=== PATIENT | female | born 1995 | race Caucasian/White ===

== ENCOUNTER 2025-03-11 05:55 | Day surgery (SDC) | payer OTHER ==
[2025-03-11 06:18] LABS: HCG URINE TEST NEGATIVE (NEGATIVE)
[2025-03-11 06:24] VITALS: RESP 18
[2025-03-11] MEDS: Lactated Ringers 1,000 ML IV SCH (06:30)
[2025-03-11] MEDS ORDERED: propofoL IV ONE ×2 (07:56→08:10)
[2025-03-11] MEDS ORDERED: Xylocaine-Mpf 2% 5 Ml Vial ONE (07:56)
[2025-03-11 08:46] VITALS: O2SAT 100
[2025-03-11 09:01] VITALS: BP 116/70; PULSE 62; TEMP 97.7
--- NOTE | 2025-03-12 10:02 | OP ---
SURGERY DATE/TIME: 03/11/2025 [id number] PREOPERATIVE DIAGNOSIS: Rectal bleeding. POSTOPERATIVE DIAGNOSIS: Small polyp in the descending colon. PROCEDURE: Colonoscopy with cold forceps biopsy. SURGEON: Clemente Goetz MD ANESTHESIA: Medication given by the anesthesia department. INDICATIONS: The patient is a 29-year-old white female who presents with complaints of 6 months of rectal bleeding, bright red in nature. The patient reports that she has had no abdominal pain, no mucus stools. The patient does report, however, that both her brother and mother have had colon polyps removed. The patient was felt to need to have endoscopic evaluation. The patient was apprised of the risks of the procedure including risk of perforation, phlebitis, untoward reaction to medication, bleeding, and missed lesions. The patient verbalized her understanding and desired to have the procedure performed. DESCRIPTION OF PROCEDURE AND FINDINGS: Patient was given medication by the anesthesia department. She had continuous pulse oximetry, ECG monitoring, and intermittent blood pressure monitoring during the examination. She was placed in the left lateral decubitus position. Digital rectal examination was performed and revealed normal anal sphincter tone and no masses. The flexible Olympus videocolonoscope was used to intubate the rectum. A view of the colon was developed sequentially to the cecum, including a short distance into the terminal ileum. Upon insertion and withdrawal was noted a small polyp in the descending colon, which was very small in nature and size. Cold forceps biopsy, 2 passes, were used to destroy lesion. With no other mucosal lesions being encountered, the scope was removed. The patient tolerated the procedure well and was sent back to outpatient recovery in good condition. The prep was noted to be fair to good.
== END 2025-03-11 09:07 | disposition home or self-care (01) ==
LOC: SDC 05:55
PROVIDERS: ATTEND Family Medicine
DX: D12.4 Benign neoplasm of descending colon (principal); K62.5 Hemorrhage of anus and rectum